=== PATIENT | female | born 1975 | race African-American/Black ===

== ENCOUNTER 2024-05-07 19:19 | Observation (INO) | payer OTHER ==
[2024-05-07 19:56] LABS: BASOPHILS ABSOLUTE AUTO 0.04 10^3/uL (0.00-0.50); BASOPHILS PERCENT AUTO 0.8 % (0-1); EOSINOPHILS ABSOLUTE AUTO 0.08 10^3/uL (0.00-1.50); EOSINOPHILS PERCENT AUTO 1.7 % (0-6); HEMATOCRIT 30.6 % (37.0-47.0); HEMOGLOBIN 9.8 g/dL (12.0-16.0); IMMATURE GRAN ABSOLUTE AUTO 0.03 10^3/uL (0.00-0.49); IMMATURE GRAN PERCENT AUTO 0.6 % (0.0-4.9); LYMPHOCYTES ABSOLUTE AUTO 0.95 10^3/uL (0.60-5.00); LYMPHOCYTES PERCENT AUTO 20.1 % (24-44); MEAN CORPUSCULAR VOLUME 71.7 fL (83.0-97.0); MONOCYTES ABSOLUTE AUTO 0.89 10^3/uL (0.00-1.50); MONOCYTES PERCENT AUTO 18.9 % (0-10); NEUTROPHILS ABSOLUTE AUTO 2.73 x10^3/uL (1.80-8.00); NEUTROPHILS PERCENT AUTO 57.9 % (41-71); PLATELET COUNT,PLT 334 10^3/uL (150-400); RED BLOOD CELL COUNT 4.27 x10^6/uL (4.00-5.50); WHITE BLOOD CELL COUNT,WBC 4.7 10^3/uL (4.0-11.0)
[2024-05-07] MEDS: Acetaminophen 500 MG Tab PO ONE (19:57)
[2024-05-07] MEDS: Sodium Chloride 0.9% 1,000 ML IV ONE (19:58)
[2024-05-07 20:10] LABS: ALBUMIN 3.4 g/dL (3.4-5.0); BILIRUBIN TOTAL 0.4 mg/dL (0.0-1.0); C-REACTIVE PROTEIN 1.86 mg/dL (<=0.50); CALCIUM 8.7 mg/dL (8.4-10.1); CREATININE 1.2 mg/dL (0.6-1.0); EST CRCL DRUG DOSING (CG) 61.32 mL/min; POTASSIUM,K 3.8 mEq/L (3.5-5.0); PROTEIN TOTAL,TP 8.3 g/dL (6.4-8.2)
[2024-05-07 20:47] LABS: PRO B-TYPE NATRIUR PEPT,BNPPRO 49 pg/mL (0-1000)
[2024-05-07 22:18] LABS: MAGNESIUM 1.9 mg/dL (1.8-2.4); TSH ULTRASENSITIVE 2.13 uIU/mL (0.36-5.60)
[2024-05-08] MEDS ORDERED: Zolpidem 5 MG Tab PO PRN (00:11)
[2024-05-08] MEDS ORDERED: Morphine 2 MG/ML SYRINGE IVPUSH PRN (00:17)
[2024-05-08] MEDS ORDERED: Ondansetron 4 MG/2 ML SDV IV PRN (00:18)
[2024-05-08] MEDS: Potassium Chloride 20 MEQ Tab.ER PO ONE (00:30)
[2024-05-08] MEDS: Acetaminophen/HYDROcodone 325-5 MG Tab PO PRN (00:31)
[2024-05-08] MEDS: Ondansetron 4 MG Tab.DIS PO PRN (00:31)
[2024-05-08] MEDS: Oseltamivir 75 MG Cap PO SCH (00:41)
[2024-05-08] MEDS: guaiFENesin 100 MG/5 ML Soln 5 ML UD Cup PO ONE (01:57)
[2024-05-08] MEDS: Acetaminophen 325 MG Tab PO PRN (04:50)
[2024-05-08] MEDS: Vitamin B Complex Cap PO SCH (07:43)
[2024-05-08] MEDS: Lisinopril 10 MG Tab PO SCH (07:43)
[2024-05-08] MEDS: Escitalopram 10 MG Tab PO SCH (07:43)
[2024-05-08] MEDS: Furosemide 40 MG Tab PO SCH (07:43)
[2024-05-08] MEDS: Metoprolol Succinate 25 MG Tab.ER PO SCH (07:43)
[2024-05-08] MEDS: metFORMIN 500 MG Tab PO SCH (07:44)
[2024-05-08 08:04] LABS: BASOPHILS ABSOLUTE AUTO 0.02 10^3/uL (0.00-0.50); BASOPHILS PERCENT AUTO 0.8 % (0-1); EOSINOPHILS ABSOLUTE AUTO 0.04 10^3/uL (0.00-1.50); EOSINOPHILS PERCENT AUTO 1.5 % (0-6); HEMATOCRIT 28.2 % (37.0-47.0); IMMATURE GRAN ABSOLUTE AUTO 0.02 10^3/uL (0.00-0.49); IMMATURE GRAN PERCENT AUTO 0.8 % (0.0-4.9); LYMPHOCYTES ABSOLUTE AUTO 1.17 10^3/uL (0.60-5.00); LYMPHOCYTES PERCENT AUTO 44.2 % (24-44); MEAN CORPUSCULAR HEMOGLOBIN 22.6 pg (27.0-32.0); MEAN CORPUSCULAR HGB CONC 31.9 g/dL (32.0-36.0); MEAN CORPUSCULAR VOLUME 70.7 fL (83.0-97.0); MONOCYTES PERCENT AUTO 22.6 % (0-10); NEUTROPHILS PERCENT AUTO 30.1 % (41-71); PLATELET COUNT,PLT 323 10^3/uL (150-400); RED BLOOD CELL COUNT 3.99 x10^6/uL (4.00-5.50); WHITE BLOOD CELL COUNT,WBC 2.7 10^3/uL (4.0-11.0)
[2024-05-08 08:07] LABS: APPEARANCE,URINE SLIGHTLY CLOUDY (CLEAR); BILIRUBIN,URINE NEGATIVE (NEGATIVE); COLOR,URINE YELLOW (YELLOW); GLUCOSE,URINE NEGATIVE (NEGATIVE); KETONES,URINE NEGATIVE (NEGATIVE); LEUKOCYTE ESTERASE,URINE NEGATIVE (NEGATIVE); NITRITE,URINE NEGATIVE (NEGATIVE); OCCULT BLOOD,URINE LARGE (NEGATIVE); PROTEIN,URINE NEGATIVE (NEGATIVE)
[2024-05-08 08:13] LABS: BACTERIA,URINE OCCASIONAL /HPF (NOT SEEN); EPITHELIAL CELLS,URINE FEW /HPF (NOT SEEN); RBC,URINE 30-40 /HPF (0-5); WBC,URINE 0-5 /HPF (0-5)
[2024-05-08 08:38] LABS: ALBUMIN 3.1 g/dL (3.4-5.0); BILIRUBIN TOTAL 0.5 mg/dL (0.0-1.0); C-REACTIVE PROTEIN 1.38 mg/dL (<=0.50); CALCIUM 8.1 mg/dL (8.4-10.1); CREATININE 1.2 mg/dL (0.6-1.0); EST CRCL DRUG DOSING (CG) 61.32 mL/min; POTASSIUM,K 3.9 mEq/L (3.5-5.0); PROTEIN TOTAL,TP 7.4 g/dL (6.4-8.2)
[2024-05-08] MEDS: Sodium Chloride 0.9% 1,000 ML IV SCH (16:35)
[2024-05-08] MEDS ORDERED: Enoxaparin 40 MG/0.4 ML Syringe SUBCUT SCH (20:00)
== END 2024-05-08 19:52 ==
LOC: CC.ED 19:19 → EDBD 22:54 → CC.MS 22:54
PROVIDERS: ADMIT Nurse Practitioner Family; ATTEND Nurse Practitioner Family
DX: J10.1 Influenza due to other identified influenza virus with other respiratory manifestations (principal); R50.9 Fever, unspecified; Z88.0 Allergy status to penicillin; Z91.040 Latex allergy status; Z91.013 Allergy to seafood
CPT/HCPCS: 36415; 71045; 80053; 81001; 83735; 83880; 84443; 84484; 85025; 86140; 87428; 93005; 93010; 99284; A9270; J7030

== ENCOUNTER 2024-11-26 06:24 | Emergency (ER) | payer OTHER ==
[2024-11-26] MEDS: methylPREDNISolone Sodium Succinate 40 MG/1 ML SDV IM ONE (07:05)
== END 2024-11-26 07:18 | disposition home or self-care (01) ==
LOC: CC.ED 06:24
DX: L29.9 Pruritus, unspecified (principal); E11.9 Type 2 diabetes mellitus without complications; Z88.0 Allergy status to penicillin; Z88.1 Allergy status to other antibiotic agents; Z91.013 Allergy to seafood; Z91.040 Latex allergy status; Z91.018 Allergy to other foods; Z79.84 Long term (current) use of oral hypoglycemic drugs; Z79.899 Other long term (current) drug therapy; Z90.49 Acquired absence of other specified parts of digestive tract
CPT/HCPCS: 96372; 99282; A9270; J2919

== ENCOUNTER 2024-12-24 18:16 | Emergency (ER) | payer OTHER ==
[2024-12-24] MEDS ORDERED: Sodium Chloride 0.9% 10 ML Syringe FLUSH PRN (18:28)
== END 2024-12-24 20:45 | disposition critical access hospital (66) ==
LOC: CC.ED 18:16
DX: K22.2 Esophageal obstruction (principal); Z88.0 Allergy status to penicillin; Z91.040 Latex allergy status; Z91.018 Allergy to other foods; Z91.013 Allergy to seafood; Z79.899 Other long term (current) drug therapy; Z79.84 Long term (current) use of oral hypoglycemic drugs; Z90.49 Acquired absence of other specified parts of digestive tract
CPT/HCPCS: 96374; 99283-25; 99284; J1610

== ENCOUNTER 2025-04-03 18:07 | Inpatient (IN) | payer OTHER ==
[2025-04-03] MEDS: levETIRAcetam 500 MG/5 ML SDV IVPUSH ONE (18:19)
[2025-04-03] MEDS: LORazepam 2 MG/ML SDV IVPUSH ONE (18:25)
[2025-04-03 18:34] LABS: BASOPHILS ABSOLUTE AUTO 0.05 10^3/uL (0.00-0.50); BASOPHILS PERCENT AUTO 0.9 % (0-1); EOSINOPHILS ABSOLUTE AUTO 0.09 10^3/uL (0.00-1.50); EOSINOPHILS PERCENT AUTO 1.6 % (0-6); IMMATURE GRAN ABSOLUTE AUTO 0.01 10^3/uL (0.00-0.49); IMMATURE GRAN PERCENT AUTO 0.2 % (0.0-4.9); LYMPHOCYTES ABSOLUTE AUTO 2.42 10^3/uL (0.60-5.00); LYMPHOCYTES PERCENT AUTO 42.6 % (24-44); MONOCYTES ABSOLUTE AUTO 0.60 10^3/uL (0.00-1.50); MONOCYTES PERCENT AUTO 10.6 % (0-10); NEUTROPHILS ABSOLUTE AUTO 2.51 x10^3/uL (1.80-8.00); NEUTROPHILS PERCENT AUTO 44.1 % (41-71); PLATELET COUNT,PLT 398 10^3/uL (150-400); RED BLOOD CELL COUNT 3.67 x10^6/uL (4.00-5.50); WHITE BLOOD CELL COUNT,WBC 5.7 10^3/uL (4.0-11.0)
[2025-04-03 18:47] LABS: ALANINE AMINOTRANSFERASE,ALT 12.0 U/L (12-78); ASPARTATE AMNIOTRANSFERASE,AST 11.0 U/L (15-37); BILIRUBIN TOTAL 0.6 mg/dL (0.0-1.0); BLOOD UREA NITROGEN,BUN 5.0 mg/dL (7-18); CARBON DIOXIDE,CO2 25.0 mmol/L (21-32); CHLORIDE,CL 107.0 mEq/L (98-106); CREATINE KINASE,CK 169.0 U/L (21-215); CREATININE 1.0 mg/dL (0.6-1.0); EST CRCL DRUG DOSING (CG) 72.78 mL/min; GLUCOSE RANDOM 97.0 mg/dL (75-99); PROTEIN TOTAL,TP 7.0 g/dL (6.4-8.2); SODIUM,NA 143.0 mEq/L (136-145)
[2025-04-03 18:48] LABS: ESTIMATED GFR 69.0 mL/min (>=60)
[2025-04-03 18:50] LABS: POTASSIUM,K 2.9 mEq/L (3.5-5.0)
[2025-04-03] MEDS: Potassium Chloride 20 MEQ Tab.ER PO ONE (18:58)
[2025-04-03] MEDS ORDERED: Ondansetron 4 MG/2 ML SDV IV PRN (19:57)
[2025-04-03] MEDS ORDERED: Ondansetron 4 MG Tab.DIS PO PRN (19:57)
[2025-04-03] MEDS: Potassium Chloride 20 MEQ Tab.ER PO SCH (22:40)
[2025-04-04] MEDS: Potassium Chloride 20 MEQ Tab.ER PO SCH (07:39)
[2025-04-04 07:48] LABS: BASOPHILS ABSOLUTE AUTO 0.06 10^3/uL (0.00-0.50); BASOPHILS PERCENT AUTO 1.1 % (0-1); EOSINOPHILS ABSOLUTE AUTO 0.09 10^3/uL (0.00-1.50); EOSINOPHILS PERCENT AUTO 1.7 % (0-6); IMMATURE GRAN ABSOLUTE AUTO 0.01 10^3/uL (0.00-0.49); IMMATURE GRAN PERCENT AUTO 0.2 % (0.0-4.9); LYMPHOCYTES ABSOLUTE AUTO 2.14 10^3/uL (0.60-5.00); LYMPHOCYTES PERCENT AUTO 40.5 % (24-44); MONOCYTES ABSOLUTE AUTO 0.52 10^3/uL (0.00-1.50); MONOCYTES PERCENT AUTO 9.8 % (0-10); NEUTROPHILS ABSOLUTE AUTO 2.46 x10^3/uL (1.80-8.00); NEUTROPHILS PERCENT AUTO 46.7 % (41-71); PLATELET COUNT,PLT 401 10^3/uL (150-400); RED BLOOD CELL COUNT 3.93 x10^6/uL (4.00-5.50); WHITE BLOOD CELL COUNT,WBC 5.3 10^3/uL (4.0-11.0)
[2025-04-04 08:22] LABS: ALANINE AMINOTRANSFERASE,ALT 13 U/L (12-78); ASPARTATE AMNIOTRANSFERASE,AST 13 U/L (15-37); BILIRUBIN TOTAL 0.9 mg/dL (0.0-1.0); BLOOD UREA NITROGEN,BUN 3 mg/dL (7-18); CARBON DIOXIDE,CO2 26 mmol/L (21-32); CHLORIDE,CL 110 mEq/L (98-106); CREATININE 0.9 mg/dL (0.6-1.0); EST CRCL DRUG DOSING (CG) 80.87 mL/min; GLUCOSE RANDOM 97 mg/dL (75-99); POTASSIUM,K 3.1 mEq/L (3.5-5.0); PROTEIN TOTAL,TP 6.6 g/dL (6.4-8.2); SODIUM,NA 145 mEq/L (136-145)
[2025-04-04 08:33] LABS: ESTIMATED GFR 78 mL/min (>=60)
[2025-04-04] MEDS: methylPREDNISolone Sodium Succinate 125 MG/2 ML SDV IVPUSH ONE (10:42)
[2025-04-04] MEDS: Iron Sucrose Complex 100 MG/5 ML SDV IVPUSH ONE (11:15)
== END 2025-04-04 12:20 | disposition home or self-care (01) | DRG 812 ==
LOC: CC.ED 18:07 → CC.MS 19:03 → UNDOADMIN 19:29 → UNDODISIN 04-04 12:20
PROVIDERS: ADMIT Physician Assistant Medical; ATTEND Physician Assistant Medical
PROC: 30233N1 Transfusion of Nonautologous Red Blood Cells into Peripheral Vein, Percutaneous Approach (ICD-10-PCS; principal; 2025-04-03)
DX: D50.8 Other iron deficiency anemias (principal); E87.6 Hypokalemia; R56.9 Unspecified convulsions; E11.9 Type 2 diabetes mellitus without complications; I50.9 Heart failure, unspecified; E78.00 Pure hypercholesterolemia, unspecified; J44.9 Chronic obstructive pulmonary disease, unspecified; F41.9 Anxiety disorder, unspecified; Z90.49 Acquired absence of other specified parts of digestive tract; Z98.890 Other specified postprocedural states; Z88.0 Allergy status to penicillin; Z91.040 Latex allergy status; Z88.1 Allergy status to other antibiotic agents; Z86.718 Personal history of other venous thrombosis and embolism; Z79.4 Long term (current) use of insulin; Z95.0 Presence of cardiac pacemaker; Z79.84 Long term (current) use of oral hypoglycemic drugs; Z79.899 Other long term (current) drug therapy
CPT/HCPCS: 36415; 36430; 80053; 82550; 85025; 86140; 86850; 86900; 86901; 86920; 86922; 93005; 96374; 96375; 99223; 99239; 99285-25; A9270-GY; J1756; J1953; J2060; J2919; J7030; P9016